=== PATIENT | female | born 1975 | race Two or more races ===

== ENCOUNTER 2022-10-02 00:47 | Emergency (ER) | payer SELFPAY ==
[~2022-10-02] VITALS: Ht 160 cm; Wt 60.9 kg
[2022-10-02 01:30] LABS: Urine Bacteria NONE SEEN /hpf (None Seen); Urine Blood Negative /uL (Negative); Urine Specific Gravity 1.023 (1.001-1.035); Urine WBC 87 /hpf (0 - 5)
[2022-10-02 02:03] LABS: Basophils # (auto) 0.1 10 ^3/uL (0-0.2); Basophils % (auto) 0.9 % (0.0-2.0); Eosinophils # (auto) 0.1 10 ^3/uL (0-0.8); Eosinophils % (auto) 1.4 % (0.0-7.0); Hematocrit 29.9 % (36.0-46.0); Hemoglobin 9.3 g/dL (12.2-16.2); Lymphocytes # (auto) 1.7 10 ^3/uL (0.4-5.4); Mean Corpuscular Hemoglobin 22.3 pg (28.0-32.0); Mean Corpuscular Hgb Conc. 30.9 g/dL (32.0-36.0); Mean Corpuscular Volume 72.2 fL (80.0-100.0); Monocytes # (auto) 0.6 10 ^3/uL (0-1.3); Monocytes % (auto) 8.1 % (0.0-12.0); Neutrophils # (auto) 5.4 10 ^3/uL (1.6-8.6); Neutrophils % (auto) 67.6 % (37.0-80.0); Nucleated Red Blood Cells % 0.1 %; Red Blood Cells 4.14 10^6/uL (4.0-5.20); Red Cell Distribution Width 18.2 % (11.8-14.3)
[2022-10-02 02:14] LABS: Albumin 3.9 g/dL (3.4-5.0); BUN/Creatinine Ratio 13.9 (10.0-20.0); Calcium 8.9 mg/dL (8.5-10.1); Potassium 3.3 mmol/L (3.5-5.1)
[2022-10-02 02:17] LABS: Bilirubin, Total 0.1 mg/dL (0.2-1.0); Total Protein 7.5 g/dL (6.4-8.2)
[2022-10-02] MEDS ORDERED: OFL50TS OT (03:23)
[2022-10-02] MEDS ORDERED: AMOX875T4 PO (03:23)
[2022-10-02] MEDS ORDERED: PHEN95TA10 PO (03:23)
[2022-10-02] MEDS ORDERED: ACET-6 PO (03:23)
[2022-10-02] MEDS ORDERED: PHENAZOPYRIDINE HCL 100 MG TAB PO ONE (03:30)
[2022-10-02] MEDS ORDERED: AMOXICILLIN/CLAVUL 875 MG TAB PO ONE (03:30)
[2022-10-02] MEDS ORDERED: ACETAMINOPHEN 500 MG TAB PO ONE (03:30)
[2022-10-02 04:39] VITALS: BP 174/89; PULSE 86; RESP 16; TEMP 98.1; O2SAT 100
== END 2022-10-02 04:41 | disposition home or self-care (01) ==
LOC: ER 00:50
DX: N39.0 Urinary tract infection, site not specified (principal); H66.91 Otitis media, unspecified, right ear; F17.210 Nicotine dependence, cigarettes, uncomplicated; Z79.899 Other long term (current) drug therapy
CPT/HCPCS: 36415; 80053; 81001; 83690; 85025